=== PATIENT | female | born 1975 | race Hispanic/Latino ===

== ENCOUNTER 2021-02-25 11:46 | Emergency (ER) | payer MEDICAID, OTHER ==
[~2021-02-25] VITALS: Ht 165.1 cm; Wt 72.1 kg
[2021-02-25] MEDS ORDERED: CEFTRIAXONE 1G VIAL IM ONE (12:30)
[2021-02-25] MEDS ORDERED: IBUPROFEN 600 MG TABLET PO ONE (12:30)
[2021-02-25] MEDS ORDERED: PHENAZOPYRIDINE HCL 200 MG TABLET PO ONE (12:30)
[2021-02-25] MEDS ORDERED: AZITHROMYCIN 250 MG TABLET PO SCH (12:30)
[2021-02-25] MEDS ORDERED: LIDOCAINE HCL-MPF 1% 2ML VIAL ONE (12:50)
[2021-02-25 12:51] LABS: APPEARANCE,URINE Clear (CLEAR); BILIRUBIN,URINE Negative (NEGATIVE); COLOR,URINE Yellow (YELLOW); GLUCOSE, URINE (UA) Negative (NEGATIVE); KETONES,URINE Negative (NEGATIVE); LEUKOCYTE ESTERASE ,URINE Trace (NEGATIVE); NITRATE,URINE Negative (NEGATIVE); OCCULT BLOOD,URINE Negative (NEGATIVE); PROTEIN,URINE Negative (NEGATIVE); UROBILINOGEN,URINE 0.2 mg/dL (0.2-1.0)
[2021-02-25 13:08] LABS: BACTERIA,URINE Rare /HPF (None Seen); RBC,URINE None Seen /HPF (0-1); SQUAMOUS EPITHELIAL CELL,UR 0-2 /HPF (0-2); WBC,URINE 0-1 /HPF (0-1)
[2021-02-25] MEDS ORDERED: IBUP-2070 PO (14:54)
[2021-02-25] MEDS ORDERED: FLUC150T6 PO (14:54)
[2021-02-25] MEDS ORDERED: DOXY200T8 PO (14:54)
[2021-02-25] MEDS ORDERED: MICO45CR16 VG (14:54)
[2021-02-25 15:12] VITALS: BP 104/55
== END 2021-02-25 15:08 | disposition home or self-care (01) ==
LOC: EDH 11:46
DX: N76.0 Acute vaginitis (principal); Z79.1 Long term (current) use of non-steroidal anti-inflammatories (NSAID); Z72.51 High risk heterosexual behavior; Z88.0 Allergy status to penicillin; Z90.49 Acquired absence of other specified parts of digestive tract
CPT/HCPCS: 76856; 81001; 81025; 87486; 87797; 96372; 99284; J0696; J3490

== ENCOUNTER 2022-07-14 10:15 | Emergency (ER) | payer OTHER ==
[~2022-07-14] VITALS: Ht 162.6 cm; Wt 79.8 kg
[~2022-07-14 10:15] MED LIST: DOXY200T8 PO; FLUC150T48 PO; IBUP-2070 PO; MICO45CR16 VG
[2022-07-14 10:40] LABS: APPEARANCE,URINE TURBID (CLEAR); BILIRUBIN,URINE NEGATIVE (NEGATIVE); COLOR,URINE YELLOW (YELLOW); GLUCOSE, URINE (UA) NEGATIVE (NEGATIVE); KETONES,URINE 5 mg/dL (NEGATIVE); LEUKOCYTE ESTERASE ,URINE 500 Leu/uL (NEGATIVE); NITRATE,URINE NEGATIVE (NEGATIVE); OCCULT BLOOD,URINE MODERATE (NEGATIVE); PROTEIN,URINE 50 mg/dL (NEGATIVE); UROBILINOGEN,URINE 0.2 mg/dL (0.2-1.0)
[2022-07-14 10:42] LABS: BASOPHILS % (AUTO) 0.3 % (0.0-5.0); EOSINOPHILS % (AUTO) 13.5 % (0.0-8.0); LYMPHOCYTES % (AUTO) 15.3 % (21.0-51.0); MEAN CORPUSCULAR HEMOGLOBIN 27.8 pg (27.0-33.0); MEAN CORPUSCULAR HGB CONC 33.6 g/dL (32.0-36.0); MEAN CORPUSCULAR VOLUME 82.7 fL (79-99); MONOCYTES % (AUTO) 3.9 % (3.0-13.0); NEUTROPHILS % (AUTO) 66.6 % (40.0-77.0); PLATELET COUNT (AUTO) 237 K/uL (130-400); RED BLOOD CELL COUNT(AUTO) 5.08 MIL/uL (4.00-5.50); RED CELL DISTRIBUTION WIDTH 13.2 % (11.0-15.5); WHITE BLOOD COUNT (AUTO) 11.7 K/uL (4.8-10.8)
[2022-07-14 10:48] LABS: CREATININE 0.8 mg/dL (0.5-1.5); POTASSIUM 3.5 mmol/L (3.5-5.1)
[2022-07-14 10:50] LABS: SQUAMOUS EPITHELIAL CELL,UR Moderate /HPF (0-2)
[2022-07-14 10:51] LABS: MUCUS,URINE Few LPF (None Seen)
[2022-07-14 10:52] LABS: ALBUMIN 3.6 g/dL (3.5-5.0); BACTERIA,URINE Moderate /HPF (None Seen); CALCIUM OXALATE CRYSTALS,UR Few /LPF (None Seen); TOTAL PROTEIN, SERUM 7.7 g/dL (6.0-8.3)
[2022-07-14] MEDS ORDERED: CEFTRIAXONE 1G VIAL ONE (11:49)
[2022-07-14] MEDS ORDERED: KETOROLAC 30MG VIAL (30MG/ML) ONE (11:50)
[2022-07-14] MEDS ORDERED: KETOROLAC 30MG VIAL (30MG/ML) IVP ONE (12:00)
[2022-07-14] MEDS ORDERED: CEFTRIAXONE 1G VIAL IVP ONE (12:00)
[2022-07-14] MEDS ORDERED: 0.9%NACL 1000ML 1,000 ML IV ONE (12:00)
[2022-07-14] MEDS ORDERED: SULF1TAB42 PO (12:33)
[2022-07-14 12:43] VITALS: BP 109/71
== END 2022-07-14 12:55 | disposition home or self-care (01) ==
LOC: EDH 10:15
DX: N39.0 Urinary tract infection, site not specified (principal); R10.9 Unspecified abdominal pain; K52.9 Noninfective gastroenteritis and colitis, unspecified; E78.00 Pure hypercholesterolemia, unspecified; Z20.822 Contact with and (suspected) exposure to COVID-19; Z90.49 Acquired absence of other specified parts of digestive tract; Z79.899 Other long term (current) drug therapy; Z88.0 Allergy status to penicillin
CPT/HCPCS: 99285; 74176; 96374; 87635; 96361; 96375; 80053; 83690; 85025; 87088; 87804 ×2; 81001; 36415; C9803; J7030; J0696; J1885

== ENCOUNTER 2024-08-04 14:38 | Emergency (ER) | payer SELFPAY ==
[~2024-08-04] VITALS: Ht 162.6 cm; Wt 84.4 kg
[~2024-08-04 14:38] MED LIST changes: +SULF1TAB42 PO
[2024-08-04 15:36] LABS: ADD UA MICROSCOPIC YES; APPEARANCE,URINE CLEAR (CLEAR); BILIRUBIN,URINE NEGATIVE (NEGATIVE); COLOR,URINE LIGHT-YELLOW (YELLOW); GLUCOSE, URINE (UA) 70 mg/dL (NEGATIVE); KETONES,URINE NEGATIVE (NEGATIVE); LEUKOCYTE ESTERASE ,URINE 250 Leu/uL (NEGATIVE); NITRATE,URINE NEGATIVE (NEGATIVE); PROTEIN,URINE NEGATIVE (NEGATIVE); UROBILINOGEN,URINE 0.2 mg/dL (0.2-1.0)
[2024-08-04 15:38] LABS: HCG,QUALITATIVE URINE NEGATIVE (NEGATIVE)
[2024-08-04 15:45] LABS: CALCIUM OXALATE CRYSTALS,UR RARE /LPF (None Seen); NON-SQUAMOUS EPITHELIAL CELL <1 /HPF (0-2); SQUAMOUS EPITHELIAL CELL,UR FEW /HPF (0-2); YEAST,URINE BUDDING RARE /HPF (None Seen); YEAST,URINE HYPHAE RARE /HPF (None Seen)
--- NOTE | 2024-08-04 16:04 | ERN ---
General Chief Complaint: Shortness of Breath Stated Complaint: SOB X 4 DAYS Time Seen by MD: 14:45 Source: patient History of Present Illness Initial Comments 49-year-old female coming in with shortness of breath. Patient states that when she walks she becomes more short of breath. She states she has not followed up with the primary care physician about two years and states he was never had any symptoms like this before. No fever or chills. Allergies: Coded Allergies: Penicillins (Unverified Allergy, Unknown, 07/14/22) Home Meds Active Scripts Sulfamethoxazole/Trimethoprim (Bactrim Ds Tablet) 1 Each Tablet, 1 TAB PO BID for 7 Days, #14 TAB 0 Refills Prov:JAIRO HANSON 07/14/22 Ibuprofen (Ibuprofen) 600 Mg Tablet, 600 MG PO Q6H PRN for PAIN for 5 Days, #15 TAB Prov:ALDO GEORGE 02/25/21 Doxycycline Hyclate (Doxycycline Hyclate) 200 Mg Tablet.dr, 200 MG PO BID for 10 Days, #20 TAB Prov:ALDO GEORGE 02/25/21 Miconazole Nitrate (Miconazole 7) 45 Gm Cream.appl, 1 JANEL VG DAILY for 7 Days, #1 PACK Prov:ALDO GEORGE 02/25/21 Fluconazole (Fluconazole) 150 Mg Tablet, 150 MG PO ONCE for rpt in 3 days for 3 Days, #2 TAB Prov:ALDO GEORGE 02/25/21 Past Medical History Past Medical History: High Cholesterol Past Surgical History: Cholecystectomy Social History Social History: Negative ROS Dictation CONSTITUTIONAL: No chills, no fever, no weakness, no diaphoresis, no malaise. HEAD/FACE: No signs of trauma. EENT: No eye pain, no blurred vision, no tearing, no double vision, no ear pain, no ear discharge, no nose pain, no nasal congestion, no throat pain, no throat swelling, no mouth pain. RESPIRATORY: No cough, orthopnea, SOB, no stridor, no wheezing. CARDIOVASCULAR: No chest pain, no edema, no palpitations, no syncope. GASTROINTESTINAL/ABDOMINAL: No abdominal pain, no constipation, no diarrhea, no nausea, no vomiting. GENITOURINARY: No abnormal discharge, no dysuria, no frequent urination, no hematuria. No complaints of pain in the genitals. MUSCULOSKELETAL: No back pain, no gout, no joint pain, no joint swelling, no muscle pain, no muscle stiffness, no neck pain. INTEGUMENTARY: No change in color, no change in hair/nails, no dryness, no lesion, no lumps, no rash. NEUROLOGICAL/PSYCH: No anxiety, not depressed, no emotional problem, no headache, no numbness, no pre-existing deficit, no history of seizures, no tremors, no weakness. HEMATOLOGIC/LYMPHATIC: Not anemic, no history of blood clots, no apparent bleeding, no bruising, glands not swollen. All Systems Negative, Except as Noted. Physical Exam Physical Exam Dictation VITAL SIGNS: Reviewed. GENERAL APPEARANCE: Alert, oriented x3, no acute distress, obese. HEAD AND FACE: Non-traumatic. EYES: PERRL, pink conjunctivas, eyelid no trauma, anterior chamber clear. EARS: Pinnas intact and no signs of trauma or erythema. Ear canals clear and no discharge. TMs no erythema. NOSE: No discharge, no bleeding. OROPHARYNX: Mouth normal, teeth no caries, tongue pink. Pharynx clear, no erythema. Tonsils no exudates, no abscesses noted. Mucous membrane moist. NECK: Supple, non-tender, no thyromegaly, no masses, no JVD, no bruits. BREAST: Deferred. CHEST: No tenderness, no crepitus, no paradoxical movement, no retractions. LUNGS: Clear, well-ventilated, symmetric, no rales, no wheezing, no rhonchi, no stridor, good breath sounds bilaterally. HEART: Regular rate, regular rhythm, no murmur, no gallops. VASCULAR: No peripheral edema. ABDOMEN: Soft, positive bowel sounds, nondistended, no guarding, nontender, no rebound, no masses no hepatomegaly, no splenomegaly, no Yanes's sign, no hernias. RECTAL: Deferred. GENITAL: Deferred. NEUROLOGICAL: Normal speech, gross motor function intact, gross sensory function intact. MUSCULOSKELETAL: Neck nontender, full range of motion, back nontender, full range of motion. EXTREMITIES: Nontender, full range of motion. SKIN: Color pink, dry, no turgor, no rash, no lacerations, no abrasions, no contusions. LYMPHATICS: Deferred. Results Laboratory and Microbiology Lab and Micro Result Laboratory Tests Test 08/04/24 14:55 08/04/24 15:54 Urine Color LIGHT-YELLOW (YELLOW) Urine Appearance CLEAR (CLEAR) Urine pH 6.0 (5.0-8.0) Urine Specific [place] 1.014 (1.001-1.031) Urine Protein NEGATIVE mg/dL (NEGATIVE) Urine Glucose (UA) 70 mg/dL (NEGATIVE) H Urine Ketones NEGATIVE mg/dL (NEGATIVE) Urine Occult Blood +- (TRACE) (NEGATIVE) H Urine Nitrate NEGATIVE (NEGATIVE) Urine Bilirubin NEGATIVE mg/dL (NEGATIVE) Urine Urobilinogen 0.2 mg/dL (0.2-1.0) Urine Leukocyte Esterase 250 Jovon/uL (NEGATIVE) H Urine RBC 6-10 /HPF (0-1) H Urine WBC 11-25 /HPF (0-1) H Urine Squamous Epithelial Cells FEW /HPF (0-2) Urine Non-Squamous Epithelial Cells <1 /HPF (0-2) Urine Calcium Oxalate Crystals RARE /LPF (None Seen) Urine Bacteria None /HPF (None Seen) Urine Yeast RARE /HPF (None Seen) Urine Yeast with Hyphae RARE /HPF (None Seen) Urine HCG, Qualitative NEGATIVE (NEGATIVE) White Blood Count 7.5 K/uL (4.8-10.8) Red Blood Count 4.89 MIL/uL (4.00-5.50) Hemoglobin 13.3 g/dL (12.0-16.0) Hematocrit 41.1 % (36-48) Mean Corpuscular Volume 84.0 fL (79-99) Mean Corpuscular Hemoglobin 27.2 pg (27.0-33.0) Mean Corpuscular Hemoglobin Concent 32.4 g/dL (32.0-36.0) Red Cell Distribution Width 12.7 % (11.0-15.5) Platelet Count 243 K/uL (130-400) Mean Platelet Volume 9.0 fL (7.5-10.5) Immature Granulocyte % (Auto) 0.4 % (0-1) Neutrophils (%) (Auto) 57.6 % (40.0-77.0) Lymphocytes (%) (Auto) 34.8 % (21.0-51.0) Monocytes (%) (Auto) 5.6 % (3.0-13.0) Eosinophils (%) (Auto) 1.2 % (0.0-8.0) Basophils (%) (Auto) 0.4 % (0.0-5.0) Neutrophils # (Auto) 4.3 K/uL (1.8-7.7) Lymphocytes # (Auto) 2.6 K/uL (1.0-4.8) Monocytes # (Auto) 0.4 K/uL (0.1-1.0) Eosinophils # (Auto) 0.09 K/uL (0.00-0.70) Basophils # (Auto) 0.03 K/uL (0.00-0.20) Absolute Immature Granulocyte (auto 0.03 K/uL (0-1) Nucleated Red Blood Cells 0.0 % (0.0-0.19) Sodium Level 136 mmol/L (136-145) Potassium Level 4.5 mmol/L (3.5-5.1) Chloride Level 101 mmol/L (101-111) Carbon Dioxide Level 28 mmol/L (21-32) Blood Urea Nitrogen 20 mg/dL (7-18) H Creatinine 0.7 mg/dL (0.5-1.0) Glomerular Filtration Rate Calc 105 mL/min (>90) Random Glucose 176 mg/dL (70-105) H Total Calcium 9.0 mg/dL (8.5-10.1) Total Bilirubin 0.3 mg/dL (0.2-1.0) Aspartate Amino Transf (AST/SGOT) 31 U/L (10-37) Alanine Aminotransferase (ALT/SGPT) 49 U/L (12-78) Alkaline Phosphatase 115 U/L (50-136) Troponin I High Sensitivity < 4 ng/L (4-50) L B-Type Natriuretic Peptide 18 pg/mL (0-100) Total Protein 8.0 g/dL (6.0-8.3) Albumin 3.9 g/dL (3.5-5.0) Labs Reviewed?: Yes EKG/XRAY/US/CT/MRI X-RAY Comment IMAGING REPORT Signed PATIENT: AUBREY LAIRD MR#: [id number] : 1975 SEX: F AGE: 49 LOCATION: [facility] ORDER [id number] STATUS: REG ER REPORT#: [id number] SERVICE [id number] REASON: sob ORDERING PHYSICIAN: ANABEL ROOT MD PROCEDURE: CXR1VW - CHEST 1VW Exam Type: CHEST 1VW Clinical Information: sob Comparison: None Findings: The lungs are clear of infiltrates. The heart is normal in size. The bony and soft tissue structures of the chest are unremarkable. Impression: Clear lungs. DICTATED BY: KELLY PIZANO MD DATE: 08/04/241614 ELECTRONICALLY SIGNED BY: KELLY PIZANO MD DATE: 08/04/241617 MDM MDM: Differential diagnosis: [place], UTI, pneumonia, CHF, Rationale: Tests considered and ordered secondary to shared decision making include: Previous outside records reviewed: Old ER visits. Risk of complication and/or morbidity or mortality of patient management: None In his is a 49-year-old female coming in to be evaluated for chest discomfort. She states that when she ambulates she physical discomfort arising from the anterior part of the abdomen. Laboratory workup positive for urinary tract infection. Patient will be discharged with a diagnosis of GERD and urinary tract infection. ED Course Orders Procedure Category Date Status Time 12 Lead Ekg Tracing- EKG 08/04/24 Logged Technical 14:43 Cbc With Differential LAB 08/04/24 Complete 14:43 Comprehensive LAB 08/04/24 Complete Metabolic Panel 14:43 Urinalysis Profile LAB 08/04/24 Complete 14:43 ,Urine Test LAB 08/04/24 Complete 14:43 B-Type Natriuretic LAB 08/04/24 Complete Peptide 14:48 Chest 1vw RAD 08/04/24 Resulted 14:48 Troponin I High LAB 08/04/24 Complete Sensitivity 14:48 Culture Urine TERRI 08/04/24 In Process 15:37 Vital Signs Date Time Temp Pulse Resp B/P (MAP) Pulse Ox O2 Delivery O2 Flow Rate FiO2 08/04/24 14:40 97.9 74 16 158/78 99 Room Air 0 DX & DISP Disposition: Discharge Departure Impression: Primary Impression: Acute UTI Additional Impression: GERD (gastroesophageal reflux disease) Condition: Stable Scripts Pantoprazole Sodium (Protonix) 40 Mg Ectab 1 TAB PO DAILY for 30 Days, #30 TAB 0 Refills Prov: ANABEL ROOT MD 08/04/24 Sulfamethoxazole/Trimethoprim (Bactrim Ds Tablet) 800 Mg-160 Mg Tablet 1 TAB PO BID for 10 Days, #20 TAB 0 Refills Prov: ANABEL ROOT MD 08/04/24 Additional Instructions: FOLLOW-UP WITH PRIMARY CARE PROVIDER IN 1 TO 2 DAYS. TAKE MEDICATIONS DIRECTED HERE IN THE EMERGENCY ROOM. OKAY TO CONTINUE HOME MEDICATIONS UNLESS OTHERWISE DISCUSSED DURING YOUR VISIT IN THE EMERGENCY ROOM TODAY. RETURN TO YOUR NEAREST EMERGENCY ROOM IF SYMPTOMS WORSEN OR IF THERE IS NO IMPROVEMENT. CALL 911 IF YOU NEED IMMEDIATE ASSISTANCE. TAKE TYLENOL [id number] NEEDED AND IF NO CONTRAINDICATIONS ARE PRESENT. INCREASE ORAL HYDRATION. A WOU ND CULTURE OR URINE CULTURE WAS ORDERED HERE IN THE EMERGENCY ROOM DEPARTMENT PLEASE FOLLOW-UP WITH PRIMARY CARE PROVIDER AND ADVISE THEM TO GET REPEAT PORTS FROM OUR FACILITY. IF YOU HAD ANY TORO WRAP/SPLINTS THAT WERE APPLIED HERE, PLEASE DO NOT REMOVE THEM UNTIL YOU SEE YOUR PRIMARY CARE OR SPECIALTY. Referrals: Referrals: NONE (PCP) SARWAT LOVE MD Time of Disposition: 16:50 ANABEL ROOT MD Aug 04, 2024 16:04
[2024-08-04 16:15] LABS: BASOPHILS # (AUTO) 0.03 K/uL (0.00-0.20); BASOPHILS % (AUTO) 0.4 % (0.0-5.0); EOSINOPHILS # (AUTO) 0.09 K/uL (0.00-0.70); EOSINOPHILS % (AUTO) 1.2 % (0.0-8.0); HEMATOCRIT 41.1 % (36-48); IMMATURE GRANULOCYTE ABSOLUTE 0.03 K/uL (0-1); LYMPHOCYTES # (AUTO) 2.6 K/uL (1.0-4.8); LYMPHOCYTES % (AUTO) 34.8 % (21.0-51.0); MEAN CORPUSCULAR HEMOGLOBIN 27.2 pg (27.0-33.0); MEAN CORPUSCULAR HGB CONC 32.4 g/dL (32.0-36.0); MONOCYTES # (AUTO) 0.4 K/uL (0.1-1.0); MONOCYTES % (AUTO) 5.6 % (3.0-13.0); NEUTROPHILS # (AUTO) 4.3 K/uL (1.8-7.7); NEUTROPHILS % (AUTO) 57.6 % (40.0-77.0); PLATELET COUNT (AUTO) 243 K/uL (130-400); RED BLOOD CELL COUNT(AUTO) 4.89 MIL/uL (4.00-5.50); RED CELL DISTRIBUTION WIDTH 12.7 % (11.0-15.5); WHITE BLOOD COUNT (AUTO) 7.5 K/uL (4.8-10.8)
--- NOTE | 2024-08-04 16:18 | HMCIMG ---
Exam Type: CHEST 1VW Clinical Information: sob Comparison: None Findings: The lungs are clear of infiltrates. The heart is normal in size. The bony and soft tissue structures of the chest are unremarkable. Impression: Clear lungs.
[2024-08-04 16:25] LABS: CREATININE 0.7 mg/dL (0.5-1.0); POTASSIUM 4.5 mmol/L (3.5-5.1)
[2024-08-04 16:34] LABS: ALBUMIN 3.9 g/dL (3.5-5.0); BILIRUBIN,TOTAL 0.3 mg/dL (0.2-1.0)
[2024-08-04] MEDS ORDERED: SULF1TAB42 PO (16:52)
[2024-08-04] MEDS ORDERED: PANT40TA55 PO (16:52)
[2024-08-04 17:36] VITALS: BP 108/68; PULSE 64; RESP 20; TEMP 98.8; O2SAT 99
--- NOTE | 2024-08-04 20:21 | EKG ---
[facility] Test Date: 2024-08-04 Test Time: 14:51:04 Pat Name: AUBREY LAIRD Department: ED Room: Gender: F [employer] V[employer]: [id number] : 1975 Requested By: ANABEL ROOT Order Number: [id number] Reading MD: Brien Domingo Measurements Intervals [place] Rate: 67 P: 49 [place]: 160 QRS: 29 QRSD: 97 T: 54 QT: 373 QTc: 395 Interpretive Statements Sinus rhythm No previous ECG available for comparison Electronically Signed On 08-05-2024 20:42:05 CDT by Brien Domingo Please click the below link to view image of tracing.
== END 2024-08-04 17:39 | disposition home or self-care (01) ==
LOC: EDH 14:38
DX: K21.9 Gastro-esophageal reflux disease without esophagitis (principal); N39.0 Urinary tract infection, site not specified; E78.00 Pure hypercholesterolemia, unspecified; Z79.899 Other long term (current) drug therapy; Z88.0 Allergy status to penicillin; Z90.49 Acquired absence of other specified parts of digestive tract
CPT/HCPCS: 36415; 71045; 80053; 81001; 81025; 83880; 84484; 85025; 87086; 93005; 99285